=== PATIENT | female | born 1990 | race Caucasian/White ===

== ENCOUNTER → 2021-01-07 | Outpatient (CLI) | payer OTHER ==
[2021-01-07 15:11] LABS: BASO % 0.3 % (0.0-1.0); EOS # 0.2 10^3/uL (0.0-0.5); EOS % 2.2 % (0.0-3.0); HEMOGLOBIN 14.5 g/dl (12.0-15.5); LYMPH % 25.3 % (24.0-44.0); MEAN CORPUSCULAR HGB CONC 33.7 g/dl (32.0-36.5); MEAN CORPUSCULAR VOLUME 97.7 fl (80.0-96.0); MONO # 0.4 10^3/uL (0.0-0.8); MONO % 4.7 % (2.0-8.0); NEUTROPHILS # 5.2 10^3/uL (1.5-8.5); NEUTROPHILS % 67.1 % (36.0-66.0); PLATELET COUNT, AUTOMATED 251 10^3/uL (150-450); WHITE BLOOD COUNT 7.7 10^3/uL (4.0-10.0)
[2021-01-07 15:35] LABS: C REACTIVE PROTEIN QUANTITATIV < 0.30 MG/DL (0.00-0.30); RHEUMATOID FACTOR QUANT < 10.0 IU/ML (<15.0)
[2021-01-07 15:41] LABS: ERYTHROCYTE SEDIMENTATION RATE 3 mm/hr (0-20)
[2021-01-11 17:09] LABS: ANTINUCLEAR ANTIBODIES DIRECT Negative (Negative); Lyme Disease IgG/IgM Antibodie <0.91 ISR (0.00-0.90); Lyme Disease IgM Ab Quantitati <0.80 index (0.00-0.79)
== END ==
LOC: M LAB 14:29
PROVIDERS: ATTEND Orthopaedic Surgery
DX: M72.2 Plantar fascial fibromatosis (principal)

== ENCOUNTER → 2022-01-26 | Outpatient (CLI) | payer OTHER ==
[2022-01-26 18:50] LABS: BASO % 0.2 % (0.0-1.0); EOS % 0.2 % (0.0-3.0); HEMATOCRIT 39.6 % (36.0-47.0); HEMOGLOBIN 13.4 g/dl (12.0-15.5); LYMPH # 1.1 10^3/uL (1.5-5.0); LYMPH % 11.6 % (24.0-44.0); MEAN CORPUSCULAR HEMOGLOBIN 32.8 pg (27.0-33.0); MEAN CORPUSCULAR HGB CONC 33.8 g/dl (32.0-36.5); MEAN CORPUSCULAR VOLUME 97.1 fl (80.0-96.0); MONO # 0.4 10^3/uL (0.0-0.8); NEUTROPHILS # 8.3 10^3/uL (1.5-8.5); NEUTROPHILS % 83.7 % (36.0-66.0); PLATELET COUNT, AUTOMATED 221 10^3/uL (150-450); RED BLOOD COUNT 4.08 10^6/uL (4.00-5.40); WHITE BLOOD COUNT 9.9 10^3/uL (4.0-10.0)
[2022-01-26 23:11] LABS: HEPATITIS C VIRUS ABY INDEX 0.1 INDEX (<0.8); HIV 1&2 SCREEN CENTAUR NEGATIVE (NEGATIVE)
[2022-01-27 13:40] LABS: GC DNA AMPLIFICATION NEGATIVE (NEGATIVE)
== END ==
LOC: M LAB 14:02 → M PLALAB 14:02
PROVIDERS: ATTEND Advanced Practice Midwife
DX: Z36.9 Encounter for antenatal screening, unspecified (principal)

== ENCOUNTER → 2022-03-27 | Outpatient (CLI) | payer OTHER | LOC: M WHC 14:25 | PROVIDERS: ATTEND Obstetrics & Gynecology | DX: Z34.02 Encounter for supervision of normal first pregnancy, second trimester (principal); Z3A.23 23 weeks gestation of pregnancy ==

== ENCOUNTER → 2022-05-09 | Outpatient (CLI) | payer OTHER ==
[2022-05-09 19:02] LABS: HEMATOCRIT 35.7 % (36.0-47.0); HEMOGLOBIN 11.8 g/dl (12.0-15.5); MEAN CORPUSCULAR HEMOGLOBIN 33.8 pg (27.0-33.0); MEAN CORPUSCULAR HGB CONC 33.1 g/dl (32.0-36.5); MEAN CORPUSCULAR VOLUME 102.3 fl (80.0-96.0); PLATELET COUNT, AUTOMATED 271 10^3/uL (150-450); RED BLOOD COUNT 3.49 10^6/uL (4.00-5.40)
[2022-05-09 19:50] LABS: GC DNA AMPLIFICATION NEGATIVE (NEGATIVE)
== END ==
LOC: M PLALAB 14:50
PROVIDERS: ATTEND Obstetrics & Gynecology
DX: Z36.89 Encounter for other specified antenatal screening (principal); Z3A.26 26 weeks gestation of pregnancy

== ENCOUNTER → 2022-05-11 | Outpatient (CLI) | payer OTHER | LOC: M WHC 14:45 | PROVIDERS: ATTEND Obstetrics & Gynecology | DX: Z36.2 Encounter for other antenatal screening follow-up (principal); Z3A.30 30 weeks gestation of pregnancy ==

== ENCOUNTER → 2022-07-06 | Outpatient (REF) | payer OTHER | LOC: M PLALAB 15:44 | PROVIDERS: ATTEND Advanced Practice Midwife | DX: Z34.03 Encounter for supervision of normal first pregnancy, third trimester (principal) ==

== ENCOUNTER → 2022-07-13 | Outpatient (CLI) | payer OTHER ==
[~2022-07-13] MED LIST: ACET650T61 PO; OMEP10CASR PO; PRENTAB9 PO; TUMS750C5 PO
== END ==
LOC: M WHC 10:41
PROVIDERS: ATTEND Advanced Practice Midwife
DX: Z34.03 Encounter for supervision of normal first pregnancy, third trimester (principal); O40.3XX1 Polyhydramnios, third trimester, fetus 1; Z3A.30 30 weeks gestation of pregnancy

== ENCOUNTER 2022-07-16 11:41 | Inpatient (IN) | payer OTHER ==
[2022-07-16] VITALS (15 sets, daily range): BP systolic 118–175; BP diastolic 70–101
[~2022-07-16] VITALS: Ht 165.1 cm; Wt 128.3 kg
[2022-07-16] MEDS ORDERED: PRENTAB9 PO (12:06)
[2022-07-16] MEDS ORDERED: OMEP10CASR PO (12:06)
[2022-07-16] MEDS ORDERED: TUMS750C5 PO (12:06)
[2022-07-16] MEDS ORDERED: ACET650T61 PO (12:06)
[2022-07-16] MEDS ORDERED: HOME MED LIST COMPLETE! XX SCH (12:25)
[2022-07-16 13:51] LABS: HEMATOCRIT 36.2 % (36.0-47.0); HEMOGLOBIN 12.5 g/dl (12.0-15.5); MEAN CORPUSCULAR HEMOGLOBIN 34.1 pg (27.0-33.0); MEAN CORPUSCULAR HGB CONC 34.5 g/dl (32.0-36.5); MEAN CORPUSCULAR VOLUME 98.6 fl (80.0-96.0); PLATELET COUNT, AUTOMATED 217 10^3/uL (150-450); RED BLOOD COUNT 3.67 10^6/uL (4.00-5.40); WHITE BLOOD COUNT 16.5 10^3/uL (4.0-10.0)
[2022-07-16 13:53] LABS: TOTAL PROTEIN,RANDOM URINE 18.8 MG/DL (0.0-14.0)
[2022-07-16 13:58] LABS: CREATININE,RANDOM URINE 134.1 MG/DL
[2022-07-16 14:21] LABS: URIC ACID 6.1 MG/DL (3.1-7.8)
[2022-07-16 14:24] LABS: LDH LACTATE DEHYDROGENASE 161 U/L (120-246)
[2022-07-16 14:25] LABS: ALT/SGPT < 9 U/L (7.0-40); AST/SGOT 11 U/L (<34); BILIRUBIN,TOTAL 0.3 MG/DL (0.3-1.2); CREATININE FOR GFR 0.77 MG/DL (0.55-1.30); GLOMERULAR FILTRATION RATE > 60.0 (>60)
[2022-07-16] MEDS ORDERED: miSOPROStol 50MCG 1/2 TABLET PO SCH (16:00)
[2022-07-16] MEDS ORDERED: METHYLERGONOVINE MALEATE 0.2 MG/ML VIAL (J2210) IM PRN (17:00)
[2022-07-16] MEDS ORDERED: OXYTOCIN DRIP 30 UNITS in IV 1 EA IV PRN (17:00)
[2022-07-16] MEDS ORDERED: LIDOCAINE 1% MDV 20ML VIAL INFIL PRN (17:00)
[2022-07-16] MEDS ORDERED: TRANEXAMIC ACID INJection 1,000 MG in NS 100 ML IV PRN (17:00)
[2022-07-16] MEDS ORDERED: CARBOPROST TROMETHAMINE 250 MCG/ML AMP IM PRN (17:00)
[2022-07-16] MEDS: OMEPRAZOLE 20MG CAP PO SCH (18:14)
[2022-07-16] MEDS ORDERED: PROMETHAZINE 25MG/ML 1ML VIAL IV ONE (19:30)
[2022-07-16] MEDS ORDERED: BUTORPHANOL 2 MG/ML 1ML VIAL IV ONE (19:30)
[2022-07-16 23:19] LABS: CORD GAS ABE A -5.7; CORD GAS ABE V -4.3; CORD GAS HCO3 A 23.8 MEQ/L; CORD GAS HCO3 V 23.8 MEQ/L; CORD GAS O2 SAT V 26.1 %; CORD GAS PCO2 A 61.7 mmHg; CORD GAS PCO2 V 54.3 mmHg; CORD GAS PH A 7.204 UNITS; CORD GAS PH V 7.26 UNITS; CORD GAS PO2 A > 700.0 mmHg; CORD GAS TCO2 A 25.7 MEQ/L; CORD GAS TCO2 V 25.5 MEQ/L
[2022-07-16] MEDS ORDERED: METHYLERGONOVINE MALEATE 0.2 MG TAB PO PRN (23:40)
[2022-07-16] MEDS ORDERED: DIBUCAINE 1% OINTMENT 30GM TOP PRN (23:40)
[2022-07-16] MEDS ORDERED: MOM 30ML SUSPENSION UDC PO PRN (23:40)
[2022-07-16] MEDS ORDERED: ACETAMINOPHEN TAB 650MG DOSE (2X325MG) PO PRN (23:40)
[2022-07-16] MEDS ORDERED: DOCUSATE SODIUM 100MG CAPSULE PO PRN (23:40)
[2022-07-16] MEDS ORDERED: IBUPROFEN 600MG TAB PO PRN (23:40)
[2022-07-16] MEDS ORDERED: RHOGAM 300MCG (1500IU) INJ IM SCH (23:40)
[2022-07-16] MEDS ORDERED: ACETAMINOPHEN 500 MG TAB PO PRN (23:40)
[2022-07-16] MEDS ORDERED: OXYTOCIN DRIP 30 UNITS in IV 1 EA IV SCH (23:40)
[2022-07-17 01:00] VITALS: BP 117/58
[2022-07-17 06:00] VITALS: BP 109/58
[2022-07-17] MEDS: IBUPROFEN 800 MG TAB PO PRN ×2 (06:37→16:12)
[2022-07-17] MEDS: OMEPRAZOLE 20MG CAP PO SCH (08:11)
[2022-07-17] MEDS: PRENATAL VITAMINS CHEWABLE TABLET PO SCH (08:11)
[2022-07-17 08:19] VITALS: BP 109/58
[2022-07-17] MEDS ORDERED: ANUSOL HC CREAM 30GM TOP PRN (12:35)
[2022-07-17 18:00] VITALS: BP 116/59
[2022-07-18] MEDS: IBUPROFEN 800 MG TAB PO PRN (00:24)
[2022-07-18 06:19] VITALS: BP 119/58
[2022-07-18] MEDS ORDERED: MEASLES,MUMPS,RUBELLA VACCINE INJ (MMR-II) SC.IMMUN ONE (09:00)
[2022-07-18] MEDS: PRENATAL VITAMINS CHEWABLE TABLET PO SCH (09:07)
[2022-07-18] MEDS: OMEPRAZOLE 20MG CAP PO SCH (09:07)
== END 2022-07-18 12:30 | disposition home or self-care (01) | DRG 560 ==
LOC: M LDO 11:41 → M LDI 16:59 → M OBS 07-17 01:05
PROVIDERS: ADMIT Obstetrics & Gynecology; ATTEND Obstetrics & Gynecology
PROC: 10E0XZZ Delivery of Products of Conception, External Approach (ICD-10-PCS; principal; 2022-07-16)
PROC: 0KQM0ZZ Repair Perineum Muscle, Open Approach (ICD-10-PCS; 2022-07-16)
PROC: 3E0P7GC Introduction of Other Therapeutic Substance into Female Reproductive, Via Natural or Artificial Opening (ICD-10-PCS; 2022-07-16)
DX: O13.4 Gestational [pregnancy-induced] hypertension without significant proteinuria, complicating childbirth (principal); O40.3XX0 Polyhydramnios, third trimester, not applicable or unspecified; Z3A.38 38 weeks gestation of pregnancy; O70.1 Second degree perineal laceration during delivery; Z37.0 Single live birth

== ENCOUNTER → 2023-10-16 | Outpatient (REF) | payer OTHER | LOC: M SFHCWAGY 08:23 | PROVIDERS: ATTEND Advanced Practice Midwife | DX: Z12.4 Encounter for screening for malignant neoplasm of cervix (principal); R87.810 Cervical high risk human papillomavirus (HPV) DNA test positive ==

== ENCOUNTER → 2024-05-14 | Outpatient (REF) | payer OTHER | LOC: M SFHCWAGY 08:15 | PROVIDERS: ATTEND Specialist | DX: R87.613 High grade squamous intraepithelial lesion on cytologic smear of cervix (HGSIL) (principal) ==

== ENCOUNTER → 2024-10-20 | Outpatient (REF) | payer OTHER ==
[2024-10-22 15:07] LABS: HPV APTIMA Not Detected (Not Detected)
== END ==
LOC: M SFHCWAGY 17:56
PROVIDERS: ATTEND Advanced Practice Midwife
DX: Z12.4 Encounter for screening for malignant neoplasm of cervix (principal)

== ENCOUNTER → 2024-11-12 | Outpatient (CLI) | payer OTHER ==
[2024-11-12 17:32] LABS: HEMATOCRIT 37.7 % (36.0-47.0); HEMOGLOBIN 12.8 g/dl (12.0-15.5); MEAN CORPUSCULAR HEMOGLOBIN 32.8 pg (27.0-33.0); MEAN CORPUSCULAR VOLUME 96.7 fl (80.0-96.0); PLATELET COUNT, AUTOMATED 211 10^3/uL (150-450); WHITE BLOOD COUNT 11.6 10^3/uL (4.0-10.0)
[2024-11-12 18:30] LABS: HIV 1&2 SCREEN NEGATIVE (NEGATIVE)
[2024-11-12 18:37] LABS: HEPATITIS C VIRUS ABY INDEX 0.03 INDEX (<0.8)
== END ==
LOC: M PLALAB 15:48
PROVIDERS: ATTEND Advanced Practice Midwife
DX: Z34.81 Encounter for supervision of other normal pregnancy, first trimester (principal); Z3A.00 Weeks of gestation of pregnancy not specified

== ENCOUNTER → 2025-01-15 | Outpatient (CLI) | payer OTHER | LOC: M WHC 12:39 | PROVIDERS: ATTEND Advanced Practice Midwife | DX: Z34.82 Encounter for supervision of other normal pregnancy, second trimester (principal); Z3A.21 21 weeks gestation of pregnancy ==

== ENCOUNTER → 2025-02-19 | Outpatient (CLI) | payer OTHER ==
[2025-02-19 14:17] LABS: GLUCOSE CHALLENGE TEST 1 HOUR 100 MG/DL (LESS THAN 140)
[2025-02-19 14:20] LABS: PLATELET COUNT, AUTOMATED 221 10^3/uL (150-450)
[2025-02-19 14:46] LABS: HIV 1&2 SCREEN NEGATIVE (NEGATIVE)
[2025-02-19 14:54] LABS: HEPATITIS C VIRUS ABY INDEX < 0.02 INDEX (<0.8)
[2025-02-19 15:02] LABS: Trichomonas vaginalis (AMP) NOT DETECTED (NEGATIVE)
[2025-02-19 15:26] LABS: GC DNA AMPLIFICATION NEGATIVE (NEGATIVE)
== END ==
LOC: M PLALAB 09:14
PROVIDERS: ATTEND Nurse Practitioner Family
DX: Z34.80 Encounter for supervision of other normal pregnancy, unspecified trimester (principal)

== ENCOUNTER → 2025-04-21 | Outpatient (REF) | payer OTHER | LOC: M SFHCWAGY 15:09 | PROVIDERS: ATTEND Nurse Practitioner Family | DX: Z36.85 Encounter for antenatal screening for Streptococcus B (principal); Z3A.36 36 weeks gestation of pregnancy ==

== ENCOUNTER 2025-05-20 13:44 | Inpatient (IN) | payer OTHER ==
[2025-05-20] VITALS (35 sets, daily range): BP systolic 83–153; BP diastolic 46–81; O2SAT 97
[~2025-05-20] VITALS: Ht 165.1 cm; Wt 128.0 kg
[2025-05-20] MEDS: LR 1,000 ML IV ONE (14:10)
[2025-05-20] MEDS ORDERED: CARBOPROST TROMETHAMINE 250 MCG/ML AMP IM PRN (14:10)
[2025-05-20] MEDS ORDERED: LIDOCAINE 1% MDV 20 ML VIAL INFIL PRN (14:10)
[2025-05-20] MEDS ORDERED: OXYTOCIN DRIP 30 UNITS in IV 1 EA IV PRN (14:10)
[2025-05-20] MEDS ORDERED: METHYLERGONOVINE MALEATE 0.2 MG/ML 1 ML VIAL IM PRN (14:10)
[2025-05-20] MEDS ORDERED: OXYTOCIN INJ 10UNITS/ML 1ML VIAL IM PRN (14:10)
[2025-05-20 15:08] LABS: PLATELET COUNT, AUTOMATED 237 10^3/uL (150-450)
[2025-05-20] MEDS ORDERED: diphenhydrAMINE 50 MG/ML VIAL IV PRN ×2 (16:20→19:55)
[2025-05-20] MEDS ORDERED: NALOXONE INJ 0.4 MG/1 ML VIAL IV PRN ×2 (16:20→19:55)
[2025-05-20] MEDS ORDERED: ONDANSETRON 4MG/2ML VIAL IV PRN ×2 (16:20→19:55)
[2025-05-20] MEDS ORDERED: LR 500 ML IV PRN ×2 (16:20→19:55)
[2025-05-20] MEDS ORDERED: EPIDURAL/PCA KEYS XX PRN ×2 (16:20→19:55)
[2025-05-20] MEDS: LR 1,000 ML IV SCH (16:31)
[2025-05-20] MEDS: FENTANYL/ROPIVACAINE/NACL BAG 100 ML EPIDURAL SCH (16:39)
[2025-05-20 17:13] LABS: HIV 1&2 SCREEN NEGATIVE (NEGATIVE)
[2025-05-20 17:20] LABS: HEPATITIS C VIRUS ABY INDEX < 0.02 INDEX (<0.8)
[2025-05-20] MEDS ORDERED: OXYTOCIN DRIP 30 UNITS in IV 1 EA IV SCH (17:20)
[2025-05-20] MEDS ORDERED: OXYTOCIN 30UNITS IN 0.9% NaCl 500ML IV BAG IV ONE (19:51)
[2025-05-20] MEDS ORDERED: FENTANYL/ROPIVACAINE/NACL BAG 100 ML EPIDURAL SCH (19:55)
[2025-05-20] MEDS: TRANEXAMIC ACID INJection 1,000 MG in NS 100 ML IV PRN (20:13)
[2025-05-20] MEDS: OXYTOCIN DRIP 30 UNITS in IV 1 EA IV PRN (20:16)
[2025-05-20] MEDS ORDERED: METHYLERGONOVINE MALEATE 0.2 MG TAB PO PRN (20:45)
[2025-05-20] MEDS ORDERED: ACETAMINOPHEN 325 MG TAB PO PRN (20:45)
[2025-05-20] MEDS ORDERED: IBUPROFEN 600 MG TAB PO PRN (20:45)
[2025-05-20] MEDS ORDERED: RHOGAM 300MCG (1500IU) INJ IM SCH (20:45)
[2025-05-21] MEDS: IBUPROFEN 800 MG TAB PO PRN (01:22)
[2025-05-21] MEDS: DIBUCAINE 1% OINTMENT 30 GM TOP PRN (05:27)
[2025-05-21] MEDS: ACETAMINOPHEN 500 MG TAB PO PRN (05:27)
[2025-05-21 05:35] VITALS: BP 115/58; O2SAT 97
[2025-05-21] MEDS: PRENATAL VITAMINS CHEWABLE TABLET PO SCH (08:20)
[2025-05-21] MEDS: DOCUSATE SODIUM 100 MG CAPSULE PO PRN (13:56)
[2025-05-21 18:08] VITALS: BP 122/68; O2SAT 98
[2025-05-22 06:00] VITALS: BP 112/60; O2SAT 99
[2025-05-22] MEDS: MEASLES,MUMPS,RUBELLA VACCINE INJ (MMR-II) SC.IMMUN ONE (09:00)
== END 2025-05-22 16:45 | disposition home or self-care (01) | DRG 560 ==
LOC: M LDO 13:44 → M LDI 14:12 → M OBS 22:35
PROVIDERS: ADMIT Advanced Practice Midwife; ATTEND Advanced Practice Midwife
PROC: 10E0XZZ Delivery of Products of Conception, External Approach (ICD-10-PCS; principal; 2025-05-20)
DX: O48.0 Post-term pregnancy (principal); O69.81X0 Labor and delivery complicated by cord around neck, without compression, not applicable or unspecified; Z3A.40 40 weeks gestation of pregnancy; Z79.899 Other long term (current) drug therapy; Z37.0 Single live birth